=== PATIENT | female | born 1970 | race Two or more races ===

== ENCOUNTER 2020-07-02 21:07 | Emergency (ER) | payer OTHER ==
[~2020-07-02] VITALS: Ht 167.6 cm; Wt 104.5 kg
[~2020-07-02 21:07] MED LIST: LEVO750T31 PO
[2020-07-02 22:29] LABS: BILIRUBIN,URINE NEGATIVE (NEG); CLARITY,URINE CLEAR; COLOR,URINE YELLOW; NITRITE,URINE NEGATIVE (NEG); PH,URINE 6.5 (<5.0-8.0); PROTEIN,URINE NEGATIVE (NEG-TRACE); UROBILINOGEN,URINE 0.2 mg/dL (0.2 mg/dL)
[2020-07-02 22:34] LABS: BACTERIA,URINE 0 /HPF (0-FEW); RBC,URINE 0 /HPF (0-2); WBC,URINE 0 /HPF (0-4)
[2020-07-02 22:39] LABS: BARBITURATES NEG (NEG); BENZODIAZEPINES NEG (NEG); CANNABINOIDS NEG (NEG); COCAINE NEG (NEG); METHADONE NEG (NEG); OPIATES NEG (NEG); PHENCYCLIDINE NEG (NEG)
[2020-07-02 22:40] LABS: AMPHETAMINE/METHAMPHETAMINE NEG (NEG)
[2020-07-02 22:44] LABS: BASO % 0 % (0-3); EOS # 0.1 x10^3/uL (0.0-0.7); EOS % 1 % (0-3); HEMATOCRIT 31.8 % (36.0-47.0); HEMOGLOBIN 10.1 g/dL (12.0-15.5); LYMPH # 1.8 x10^3/uL (1.0-4.8); LYMPH % 23 % (24-48); MEAN CORPUSCULAR HEMOGLOBIN 23 pg (25-35); MEAN CORPUSCULAR HGB CONC 32 g/dL (31-37); MEAN CORPUSCULAR VOLUME 71 fL (79-100); MONO # 0.6 x10^3/uL (0.0-1.1); MONO % 7 % (0-9); NEUT # 5.2 x10^3/uL (1.8-7.7); NEUT % 68 % (31-73); PLATELET COUNT 335 x10^3/uL (140-400); RED BLOOD COUNT 4.47 x10^6/uL (3.50-5.40); RED CELL DISTRIBUTION WIDTH 18.1 % (11.5-14.5); WHITE BLOOD COUNT 7.7 x10^3/uL (4.0-11.0)
[2020-07-02 22:51] LABS: CALCIUM 8.4 mg/dL (8.5-10.1); CREATININE 0.9 mg/dL (0.6-1.0); GFR 67.1; POTASSIUM 3.7 mmol/L (3.5-5.1)
[2020-07-02 22:57] LABS: ALBUMIN 3.6 g/dL (3.4-5.0); ALBUMIN/GLOBULIN RATIO 0.8 (1.0-1.7); MAGNESIUM 2.2 mg/dL (1.8-2.4); TOTAL BILIRUBIN 0.3 mg/dL (0.2-1.0)
[2020-07-02] MEDS ORDERED: CONTRAST GIVEN. MC PRN (23:00)
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
[2020-07-02 23:10] LABS: PLT ESTIMATE ADEQUATE (ADEQUATE)
[2020-07-02 23:11] LABS: ANISOCYTOSIS SLIGHT; HYPOCHROMIA MOD; MICROCYTOSIS MOD; OVALOCYTES MOD; POIKILOCYTOSIS SLIGHT
[2020-07-02] MEDS ORDERED: IOHEXOL 300 MG/ML 100ML VIAL. IV ONE (23:30)
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
--- NOTE | 2020-07-02 23:47 | RAD ---
CT chest abdomen and pelvis with contrast: History: Right chest wall pain and upper abdominal pain Axial helical images of the chest abdomen and pelvis were obtained after the administration of 75 cc IV Omni 300 contrast. Delayed images were obtained from above the kidneys to the urinary bladder. Comparison: none CT OF THE CHEST WITH IV CONTRAST: There is no mediastinal lymphadenopathy or hematoma. There is patchy linear opacities in the lung bases posteriorly bilaterally. Lymphadenopathy: no Thoracic aorta: normal Impression: Mild basal infiltrates likely discoid atelectasis. End Impression CT OF THE ABDOMEN AND PELVIS WITH IV CONTRAST: Liver: Unremarkable Spleen: Unremarkable Pancreas: Unremarkable Adrenal Glands: Unremarkable Kidneys: Unremarkable Evaluation of stomach and bowel is limited without oral contrast. Lymphadenopathy: There are multiple moderately enlarged lymph nodes in the groin bilaterally. The appendix is not seen. The gallbladder appears normal. Free fluid: no. Free air: no. The bladder appears normal. Impression: Lymphadenopathy in the groin bilaterally is uncertain etiology. End impression PQRS Compliance Statement: One or more of the following individualized dose reduction techniques were utilized for this examinat ion: 1. Automated exposure control 2. Adjustment of the mA and/or kV according to patient size 3. Use of iterative reconstruction technique Electronically signed by: Nirmal Olivo III, MD (07/02/2020 11:44 PM) [facility]
[2020-07-03] MEDS ORDERED: KETOROLAC 15 MG/ML VIAL. IVP ONE (01:00)
[2020-07-03] MEDS ORDERED: ORPHENADRINE CITRATE 60 MG/2 ML VIAL. IV ONE (01:00)
[2020-07-03] MEDS ORDERED: ORPH100T PO (01:21)
[2020-07-03] MEDS ORDERED: HYDR-2761 PO (01:21)
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
[2020-07-03 02:49] VITALS: BP 125/72
--- NOTE | 2020-07-03 07:33 | EKG ---
[facility] [address] [place] [address] Test Date: 2020-07-02 Test Time: 23:44:18 Pat Name: JOHNIE GARAY Department: Room: Gender: F Car Salesman: : 1970 Requested By: JUAN CARLOS HORNE Order Number: [id number] Reading MD: Measurements Intervals [place] Rate: 79 P: 39 DC: 132 QRS: 22 QRSD: 76 T: 40 QT: 382 QTc: 439 Interpretive Statements SINUS RHYTHM NORMAL ECG RI6.02 No previous ECG available for comparison
== END 2020-07-03 03:00 | disposition home or self-care (01) ==
LOC: ER 21:07
DX: S20.211A Contusion of right front wall of thorax, initial encounter (principal); S40.021A Contusion of right upper arm, initial encounter; S46.811A Strain of other muscles, fascia and tendons at shoulder and upper arm level, right arm, initial encounter; Z90.89 Acquired absence of other organs; Z98.890 Other specified postprocedural states; V98.8XXA Other specified transport accidents, initial encounter; Y93.89 Activity, other specified; Y92.89 Other specified places as the place of occurrence of the external cause; Y99.8 Other external cause status
CPT/HCPCS: 36415; 70450; 71260; 72125; 73060; 73090; 74177; 80053; 80307; 81001; 81025; 82553; 83735; 84484; 85025; 93005; 96374; 96375; 99285; G0480; J1885; J2360; Q9967